=== PATIENT | male | born 1950 | race Caucasian/White ===

== ENCOUNTER 2018-11-03 15:17 | Outpatient (CLI) | payer OTHER ==
--- NOTE | 2018-11-04 11:12 | MRI Report ---
Reason: LEFT SHOULD PAIN NOT IMPROVED WITH PT Procedure Date: 11/03/2018 Accession Number: [id number] / [id number] Procedure: MRI - Shoulder LT W/O CPT Code: FULL RESULT: EXAM: LEFT SHOULDER MRI WITHOUT CONTRAST EXAM DATE: 11/03/2018 05:09 PM. CLINICAL HISTORY: Left shoulder pain without improvement with physical therapy. COMPARISON: None. TECHNIQUE: Multiplanar, multisequence T1-weighted and fluid-sensitive sequences of the shoulder without contrast. Other: None. FINDINGS: Acromioclavicular Region: The acromion is type II. 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 The coracoacromial and coracoclavicular ligaments are intact. No subacromial/subdeltoid bursal fluid. Glenohumeral Region: No subluxation. No effusion or loose bodies. The articular cartilage is unremarkable. The glenohumeral ligaments and joint capsule are unremarkable. Bone Marrow: Small marginal osteophytes at the humeral head and glenoid. No acute fracture or bone lesions. Labrum: The labrum is unremarkable on this nonarthrographic study. Musculature/Rotator Cuff: There is supraspinatus tendinosis. The infraspinatus and teres minor tendons are intact. There is minimal articular surface fraying at the subscapularis tendon. No edema or fatty atrophy. Biceps Tendon: Partial tear of the long head biceps tendon. Other: The subcutaneous tissues are unremarkable. IMPRESSION: 1. Supraspinatus tendinosis. Minimal articular surface fraying at the subscapularis tendon. 2. Partial tear of the long head biceps tendon. 3. 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 [facility] MUSCULOSKELETAL RADIOLOGY SECTION
--- NOTE | 2018-11-04 12:18 | Ultrasound Report ---
Reason: LEFT SHOULD PAIN NOT IMPROVED WITH PT Procedure Date: 11/03/2018 Accession Number: [id number] / [id number] Procedure: US - Ext Limited Non Vascular CPT Code: FULL RESULT: EXAM: LEFT UPPER EXTREMITY ULTRASOUND - LIMITED EXAM DATE: 11/03/2018 04:16 PM. CLINICAL HISTORY: Left shoulder pain not improved with PT. COMPARISON: None. TECHNIQUE: Real-time scanning was performed with static images obtained. FINDINGS: There is chronic disruption of the long head of the biceps tendon with increased echogenicity in the echotexture of the long head portion of the biceps musculature suggestive of some component of fatty atrophy. IMPRESSION: Biceps tear, chronic. [facility]
== END 2018-11-03 15:18 | disposition home or self-care (01) ==
LOC: DI 15:17
PROVIDERS: ATTEND Nurse Practitioner Acute Care
DX: M75.92 Shoulder lesion, unspecified, left shoulder (principal); S46.112A Strain of muscle, fascia and tendon of long head of biceps, left arm, initial encounter; M19.012 Primary osteoarthritis, left shoulder
CPT/HCPCS: 76882

== ENCOUNTER 2019-06-22 08:40 | Outpatient (CLI) | payer OTHER ==
--- NOTE | 2019-06-22 14:12 | Ultrasound Report ---
Reason: OTHER CIRRHOSIS OF LIVER Procedure Date: 06/22/2019 Accession Number: [id number] / [id number] Procedure: US - Abdomen Limited CPT Code: FULL RESULT: EXAM: ABDOMEN ULTRASOUND LIMITED, RUQ EXAM DATE: 06/22/2019 09:28 AM. CLINICAL HISTORY: OTHER CIRRHOSIS OF LIVER. COMPARISON: ABDOMEN LIMITED 07/15/2017 9:57 AM. TECHNIQUE: Real-time scanning was performed with static images obtained. FINDINGS: Liver: Mildly increased echogenicity is noted. The right level of the liver contains a thinly septated cyst measuring 1.3 x 1.1 x 1.1 cm without solid soft tissue component identified. Liver measures at least 15.3 cm. Main portal vein flow: Hepatopetal. Gallbladder: Normal. No stones, wall thickening, or sonographic Galarza's sign. Biliary System: CBD measures 4 mm. No intrahepatic or extrahepatic ductal dilatation. Other: Right kidney is visualized and measures up to 10.2 cm in maximal sagittal dimensions without hydronephrosis or calculi identified. IMPRESSION: Echogenic liver parenchyma without suspicious mass detected. [facility]
== END 2019-06-22 08:41 | disposition home or self-care (01) ==
LOC: DI 08:40
PROVIDERS: ATTEND Nurse Practitioner Acute Care
DX: K74.60 Unspecified cirrhosis of liver (principal)
CPT/HCPCS: 76705

== ENCOUNTER 2020-03-26 09:17 | Outpatient (CLI) | payer OTHER ==
--- NOTE | 2020-03-26 11:14 | Ultrasound Report ---
PROCEDURE: Abdomen Limited INDICATIONS: CIRRHOSIS TECHNIQUE: Real-time focused scanning was performed of the abdomen, with image documentation. COMPARISON: 06/22/2019, 07/15/2017 FINDINGS: The liver demonstrates a heterogeneous, hyperechoic appearance. The liver demonstrates a l obulated contour. There is a septated cyst measuring 1 cm within the right liver superiorly The gallbladder is incompletely distended, which limits its evaluation. No gallstones or significant sludge can be seen. The gallbladder wall is mildly thickened at 4 mm, which is attributed to incomple te distention. There is no specific pericholecystic fluid. The sonographic Galarza's sign is negative. No biliary ductal dilatation is seen. The common bile duct measures 5 mm. The visualized pancreas and right kidney are unremarkable. IMPRESSION: Cirrhotic appearing liver, which is consistent with the given history. No worrisome masses identified on these ultrasound images. If there is strong clinical concern for a liver mass, then please consider a dedicated liver protocol MRI (without and with IV contrast) for further evaluation (assuming that there is no contraindicatio n). Septated 1 cm liver cyst incidentally noted. Reviewed by: Jaime Ruiz MD on 03/26/2020 10:13 AM TOM Approved by: Jaime Ruiz MD on 03/26/2020 10:13 AM TOM Station ID: [id number]
== END 2020-03-26 09:18 | disposition home or self-care (01) ==
LOC: DI 09:17
PROVIDERS: ATTEND Internal Medicine Gastroenterology
DX: K74.69 Other cirrhosis of liver (principal); K76.89 Other specified diseases of liver
CPT/HCPCS: 76705

== ENCOUNTER 2020-06-06 08:00 | Outpatient (CLI) | payer OTHER ==
[2020-06-06 12:56] LABS: BASOPHILS % (AUTO) 0.5 %; EOSINOPHILS # (AUTO) 0.6 10^3/uL (0.0-0.7); EOSINOPHILS % (AUTO) 9.8 %; HGB - HEMOGLOBIN 13.6 g/dL (14.0-18.0); LYMPHOCYTES # (AUTO) 1.5 10^3/uL (1.5-3.5); LYMPHOCYTES % (AUTO) 26.8 %; MEAN CORPUSCULAR HEMOGLOBIN 32.5 pg (27.0-31.0); MEAN CORPUSCULAR HGB CONC 33.5 g/dL (32.0-36.0); MEAN CORPUSCULAR VOLUME 96.9 fL (80.0-94.0); MEAN PLATELET VOLUME 12.5 fL (7.4-11.4); MONOCYTES # (AUTO) 0.5 10^3/uL (0.0-1.0); MONOCYTES % (AUTO) 8.4 %; NEUTROPHILS # (AUTO) 3.1 10^3/uL (1.5-6.6); NEUTROPHILS % (AUTO) 54.3 %; PLT - PLATELET COUNT 148 10^3/uL (130-450); RED BLOOD COUNT 4.19 10^6/uL (4.70-6.10); RED CELL DISTRIBUTION WIDTH 12.5 % (12.0-15.0); WHITE BLOOD COUNT 5.7 x10^3/uL (4.8-10.8)
[2020-06-06 13:12] LABS: ALBUMIN 3.2 g/dL (3.2-5.5); ALBUMIN/GLOBULIN RATIO 0.8 (1.0-2.2); ALKALINE PHOSPHATASE 142 IU/L (42-121); ALT ALANINE AMINOTRANSFERASE 63 IU/L (10-60); AST ASPARTATE AMINOTRANSFERASE 79 IU/L (10-42); BILIRUBIN,TOTAL 0.9 mg/dL (0.2-1.0); BUN - BLOOD UREA NITROGEN 10 mg/dL (6-20); CALCIUM 9.1 mg/dL (8.5-10.3); CARBON DIOXIDE - CO2 26 mmol/L (21-32); CHLORIDE 104 mmol/L (101-111); GLUCOSE 137 mg/dL (70-100); SODIUM 137 mmol/L (135-145); TOTAL PROTEIN 7.2 g/dL (6.7-8.2)
[2020-06-06 13:14] LABS: CRP - C-REACTIVE PROTEIN < 1.0 mg/dL (0-1.0)
== END 2020-06-06 23:59 | disposition home or self-care (01) ==
LOC: LAB.R 08:00
PROVIDERS: ATTEND Internal Medicine Infectious Disease
DX: M86.171 Other acute osteomyelitis, right ankle and foot (principal)
CPT/HCPCS: 80053; 85025; 86140

== ENCOUNTER 2020-07-04 07:00 | Outpatient (CLI) | payer OTHER ==
[2020-07-04 19:09] LABS: BASOPHILS # (AUTO) 0.1 10^3/uL (0.0-0.1); BASOPHILS % (AUTO) 0.8 %; EOSINOPHILS # (AUTO) 0.9 10^3/uL (0.0-0.7); EOSINOPHILS % (AUTO) 14.4 %; HGB - HEMOGLOBIN 13.9 g/dL (14.0-18.0); LYMPHOCYTES # (AUTO) 1.9 10^3/uL (1.5-3.5); LYMPHOCYTES % (AUTO) 29.3 %; MEAN CORPUSCULAR HEMOGLOBIN 32.2 pg (27.0-31.0); MEAN CORPUSCULAR HGB CONC 33.7 g/dL (32.0-36.0); MEAN CORPUSCULAR VOLUME 95.6 fL (80.0-94.0); MEAN PLATELET VOLUME 13.5 fL (7.4-11.4); MONOCYTES # (AUTO) 0.6 10^3/uL (0.0-1.0); MONOCYTES % (AUTO) 9.4 %; NEUTROPHILS % (AUTO) 45.8 %; PLT - PLATELET COUNT 133 10^3/uL (130-450); RED BLOOD COUNT 4.32 10^6/uL (4.70-6.10); RED CELL DISTRIBUTION WIDTH 12.7 % (12.0-15.0); WHITE BLOOD COUNT 6.5 x10^3/uL (4.8-10.8)
[2020-07-04 19:28] LABS: ALBUMIN 3.2 g/dL (3.2-5.5); ALBUMIN/GLOBULIN RATIO 0.8 (1.0-2.2); ALKALINE PHOSPHATASE 160 IU/L (42-121); ALT ALANINE AMINOTRANSFERASE 36 IU/L (10-60); AST ASPARTATE AMINOTRANSFERASE 74 IU/L (10-42); BILIRUBIN,TOTAL 0.7 mg/dL (0.2-1.0); BUN - BLOOD UREA NITROGEN 10 mg/dL (6-20); CARBON DIOXIDE - CO2 24 mmol/L (21-32); CHLORIDE 99 mmol/L (101-111); CREATININE 0.9 mg/dL (0.6-1.2); GLUCOSE 89 mg/dL (70-100); SODIUM 135 mmol/L (135-145); TOTAL PROTEIN 7.2 g/dL (6.7-8.2)
[2020-07-04 19:29] LABS: CRP - C-REACTIVE PROTEIN < 1.0 mg/dL (0-1.0)
== END 2020-07-04 23:59 | disposition home or self-care (01) ==
LOC: LAB.R 07:00
PROVIDERS: ATTEND Internal Medicine Infectious Disease
DX: M86.171 Other acute osteomyelitis, right ankle and foot (principal)
CPT/HCPCS: 80053; 85025; 86140

== ENCOUNTER 2020-11-12 17:55 | Outpatient (CLI) | payer OTHER ==
--- NOTE | 2020-11-12 19:53 | Ultrasound Report ---
PROCEDURE: Abdomen Limited INDICATIONS: CIRRHOSIS TECHNIQUE: Real-time scanning was performed of the abdominal and retroperitoneal organs, with image documentatio n. COMPARISON: 03/26/2020 FINDINGS: Liver: Liver is normal in size with heterogeneous and diffusely echogenic parenchymal echotexture. R edemonstrated in the right hepatic lobe, there is a 1.1 x 1.1 x 1.0 cm septated hepatic cyst. Otherwi se, no suspicious solid hepatic mass lesions. There is mild nodularity of the liver border compatible with history of cirrhosis. Gallbladder: Gallbladder is normal in appearance without gallstones, wall thickening, pericholecystic fluid, or abnormal sonographic Galarza's. Biliary ducts: Intrahepatic bile ducts are non-dilated. Extrahepatic bile duct caliber measures 6 m m. Normal is 6-7 mm or less in diameter, or 10 mm or less post-cholecystectomy. Pancreas: Visualized portions of the pancreas are sonographically normal. Kidneys: Right kidney is normal in size and echotexture. Right kidney measures 9.4 cm long without h ydronephrosis or nephrolithiasis. No solid masses. Miscellaneous: No free abdominal fluid. IMPRESSION: 1. Findings compatible with cirrhotic liver. No suspicious solid mass lesions. Redemonstration of 1.1 cm septated right hepatic lobe cyst. 2. Normal appearance of the gallbladder. If there is strong clinical concern for sonographically occult liver mass, consider further evaluatio n with dedicated liver protocol MRI or CT (without and with intravenous contrast). Reviewed by: Alpesh Londono MD on 11/12/2020 7:51 PM PST Approved by: Alpesh Londono MD on 11/12/2020 7:51 PM PST Station ID: [id number]
== END 2020-11-12 17:56 | disposition home or self-care (01) ==
LOC: DI 17:55
PROVIDERS: ATTEND Internal Medicine Gastroenterology
DX: K74.60 Unspecified cirrhosis of liver (principal); K76.89 Other specified diseases of liver

== ENCOUNTER 2021-08-25 06:46 | Outpatient (CLI) | payer OTHER ==
--- NOTE | 2021-08-25 11:02 | Ultrasound Report ---
PROCEDURE: Abdomen Limited INDICATIONS: CIRRHOSIS OF LIVER TECHNIQUE: Real-time focused scanning was performed of the abdomen, with image documentation. COMPARISON: 11/12/2020 FINDINGS: Cirrhotic liver morphology redemonstrated. Unchanged approximately 1.1 cm septated cyst in the right hepatic lobe. No solid liver mass identified. Remaining visualized right upper quadrant st ructures are within normal limits. IMPRESSION: Cirrhotic liver morphology with no evidence of solid liver mass. Reviewed by: Mike Jimenez MD on 08/25/2021 11:01 AM PST Approved by: Mike Jimenez MD on 08/25/2021 11:01 AM PST Station ID: [id number]
== END 2021-08-25 06:47 | disposition home or self-care (01) ==
LOC: DI 06:46
PROVIDERS: ATTEND Nurse Practitioner Acute Care
DX: K74.60 Unspecified cirrhosis of liver (principal)

== ENCOUNTER 2022-08-07 11:27 | Emergency (ER) | payer OTHER ==
--- NOTE | 2022-08-07 11:35 | ED Physician Documentation ---
History of Present Illness - Stated complaint Stated Complaint: SOA - History obtained from History obtained from: Patient, EMS - Additonal information Additional information: The patient is brought to the emergency department by EMS for chief complaint of shortness of breath. He has a history of COPD and has just felt a little unwell for the last few days and a general sense. The patient uses an albuterol inhaler at home but feels that this has not been helping very much. He denies any fevers or chills. He is not coughing up any phlegm. He states he feels better after receiving a DuoNeb in route. No other complaints at this time. The patient has a history of a heart murmur but denies any other cardiac issues that he knows of. Review of Systems Ten Systems: 10 systems reviewed and negative Constitutional: reports: Reviewed and negative Eyes: reports: Reviewed and negative Ears: reports: Reviewed and negative Nose: reports: Reviewed and negative Throat: reports: Reviewed and negative Cardiac: reports: Reviewed and negative Respiratory: reports: Dyspnea GI: reports: Reviewed and negative : reports: Reviewed and negative Skin: reports: Reviewed and negative Musculoskeletal: reports: Reviewed and negative Neurologic: reports: Reviewed and negative Psychiatric: reports: Reviewed and negative Endocrine: reports: Reviewed and negative Immunocompromised: reports: Reviewed and negative PD PAST MEDICAL HISTORY - Past Medical History Cardiovascular: Hypertension Endocrine/Autoimmune: Type 2 diabetes - Past Surgical History Past Surgical History: Yes Ortho: Knee replacement, Spine surgery HEENT: Cataracts - Present Medications Home Medications: Ambulatory Orders Medication Instructions Recorded Confirmed Atenolol 50 mg PO DAILY 07/31/15 08/07/22 Cetirizine [ZyrTEC] 10 mg ORAL DAILY 07/31/15 08/07/22 Colchicine 0.6 mg PO DAILY 07/31/15 08/07/22 Gabapentin [Neurontin] 600 mg PO BID 07/31/15 08/07/22 Hydroxyzine HCl 10 mg PO BID PRN 07/31/15 08/07/22 Omeprazole [PriLOSEC] 20 mg PO DAILY 07/31/15 08/07/22 Zolpidem Tartrate [Ambien] 10 mg PO DAILY PM 07/31/15 08/07/22 lisinopriL [Lisinopril] 20 mg PO DAILY 07/31/15 08/07/22 metFORMIN [Glucophage] 500 mg PO DAILY 07/31/15 08/07/22 Albuterol Sulfate [Proair 2 puffs IH Q4HR PRN 08/07/22 08/07/22 Digihaler] Amlodipine Besylate [Norvasc] 2.5 mg PO DAILY 08/07/22 08/07/22 Atorvastatin [Lipitor] 10 mg PO DAILY PM 08/07/22 08/07/22 Budesonide/Formoterol Fumarate 2 puffs IH BID 08/07/22 08/07/22 [Symbicort 160-4.5 Mcg Inhaler] Lidocaine Ointment 5% [Xylocaine 1 applic TOP BID PRN 08/07/22 08/07/22 Ointment 5%] predniSONE [Deltasone] 60 mg PO DAILY 5 Days #15 tablet 08/07/22 - Allergies Allergies/Adverse Reactions: Allergies Allergy/AdvReac Type Severity Reaction Status Date / Time morphine Allergy Hives Verified 08/07/22 11:42 shellfish derived Allergy Unknown Verified 08/07/22 11:42 - Social History Does the pt smoke?: No Smoking Status: Never smoker Does the pt drink ETOH?: Yes Does the pt have substance abuse?: No PD ED PE NORMAL - Vitals Vital signs reviewed: Yes - General General: No acute distress, Well developed/nourished, Other (Mildly drowsy, but answers questions appropriately head) - HEENT HEENT: Atraumatic, PERRL, EOMI, Moist mucous membranes - Neck Neck: Supple, no meningeal sign - Cardiac Cardiac: RRR, No murmur, Strong equal pulses - Respiratory Respiratory: No respiratory distress, Clear bilaterally - Abdomen Abdomen: Soft, Non tender, Non distended - Derm Derm: Normal color, Warm and dry, No rash - Extremities Extremities: No deformity, No edema - Neuro Neuro: Alert and oriented X 3, Other (Grossly intact) - Psych Psych: Normal mood, Normal affect Results - Vitals Vitals: Oxygen O2 Source Room air - Labs Labs: Laboratory Tests 08/07/22 08/07/22 08/07/22 11:45 11:45 11:45 WBC 6.6 RBC 3.46 L Hgb 11.5 L Hct 34.4 L MCV 99.4 H MCH 33.2 H MCHC 33.4 RDW 14.7 Plt Count 111 L MPV 11.6 H Neut # (Auto) 4.6 Lymph # (Auto) 0.9 L Stephenson # (Auto) 0.8 Eos # (Auto) 0.3 Baso # (Auto) 0.0 Absolute Nucleated RBC 0.00 Nucleated RBC % 0.0 Sodium 135 Potassium 4.6 Chloride 101 Carbon Dioxide 23 Anion Gap 11.0 BUN 11 Creatinine 1.2 Estimated GFR (MDRD) 60 L Glucose 143 H Calcium 8.7 Total Bilirubin 2.5 H AST 59 H ALT 28 Alkaline Phosphatase 126 H Total Protein 7.1 Albumin 2.9 L Globulin 4.2 Albumin/Globulin Ratio 0.7 L Lipase 29 Nasal Adenovirus (PCR) NOT DETECTED Nasal B. parapertussis DNA (PCR) NOT DETECTED Nasal Coronavir 229E PCR NOT DETECTED Nasal Coronavir HKU1 PCR NOT DETECTED Nasal Coronavir NL63 PCR NOT DETECTED Nasal Coronavir OC43 PCR NOT DETECTED Nasal Enterovir/Rhinovir PCR NOT DETECTED Nasal Influenza B PCR NOT DETECTED Nasal Influenza A PCR NOT DETECTED Nasal Parainfluen 1 PCR NOT DETECTED Nasal Parainfluen 2 PCR NOT DETECTED Nasal Parainfluen 3 PCR NOT DETECTED Nasal Parainfluen 4 PCR NOT DETECTED Nasal RSV (PCR) NOT DETECTED Nasal B.pertussis DNA PCR NOT DETECTED Nasal C.pneumoniae (PCR) NOT DETECTED Yifan Human Metapneumo PCR NOT DETECTED Nasal M.pneumoniae (PCR) NOT DETECTED Nasal SARS-CoV-2 (PCR) NOT DETECTED PD MEDICAL DECISION MAKING - ED course Complexity details: reviewed results, re-evaluated patient, considered differential, d/w patient ED course: The patient's lungs were clear in the emergency department, so no further nebulizer treatments were given initially. The patient was given a dose of steroids here and worked up with labs, respiratory PCR, and chest x-ray. Work- up was unremarkable, and pt was found to be feeling much better on re- evaluation. He was deemed stable for d/c home. We have discussed the usual indications for return. Departure - Departure Disposition: 01 Home, Self Care Clinical Impression: COPD exacerbation, Viral syndrome Condition: Stable Instructions: ED COPD Flare, ED Viral Syndrome Prescriptions: predniSONE [Deltasone] 60 mg PO DAILY 5 Days #15 tablet Comments: Your labs and chest x-ray look good. You most likely have one of the many viruses that are going right around right now and causing such symptoms, and this is caused your COPD to flareup. Your oxygen levels are actually very good and your lungs are quite a bit clearer after the treatment and steroids were given. Your prescriptions have been electronically transmitted to the [facility] in [place], your pharmacy of choice on record. Please follow-up with your primary doctor as needed. Discharge Date/Time: 08/07/22 13:55
[2022-08-07] MEDS ORDERED: DEXAMETHASONE 10 MG/ML VIAL IV STA (11:36)
[2022-08-07 11:51] LABS: BASOPHILS % (AUTO) 0.5 %; EOSINOPHILS # (AUTO) 0.3 10^3/uL (0.0-0.7); EOSINOPHILS % (AUTO) 3.8 %; HCT - HEMATOCRIT 34.4 % (42.0-52.0); HGB - HEMOGLOBIN 11.5 g/dL (14.0-18.0); LYMPHOCYTES # (AUTO) 0.9 10^3/uL (1.5-3.5); LYMPHOCYTES % (AUTO) 13.7 %; MEAN CORPUSCULAR HEMOGLOBIN 33.2 pg (27.0-31.0); MEAN CORPUSCULAR HGB CONC 33.4 g/dL (32.0-36.0); MEAN CORPUSCULAR VOLUME 99.4 fL (80.0-94.0); MEAN PLATELET VOLUME 11.6 fL (7.4-11.4); MONOCYTES # (AUTO) 0.8 10^3/uL (0.0-1.0); NEUTROPHILS # (AUTO) 4.6 10^3/uL (1.5-6.6); NEUTROPHILS % (AUTO) 69.7 %; PLT - PLATELET COUNT 111 10^3/uL (130-450); RED BLOOD COUNT 3.46 10^6/uL (4.70-6.10); RED CELL DISTRIBUTION WIDTH 14.7 % (12.0-15.0); WHITE BLOOD COUNT 6.6 x10^3/uL (4.8-10.8)
[2022-08-07 12:02] LABS: ALBUMIN 2.9 g/dL (3.2-5.5); ALBUMIN/GLOBULIN RATIO 0.7 (1.0-2.2); BILIRUBIN,TOTAL 2.5 mg/dL (0.2-1.0); CALCIUM 8.7 mg/dL (8.5-10.3); CREATININE 1.2 mg/dL (0.6-1.2); POTASSIUM 4.6 mmol/L (3.5-5.0); TOTAL PROTEIN 7.1 g/dL (6.7-8.2)
--- NOTE | 2022-08-07 12:18 | XRAY Report ---
PROCEDURE: Chest 1 View X-Ray INDICATIONS: dyspnea/cough TECHNIQUE: One view of the chest was acquired. COMPARISON: None. FINDINGS: Surgical changes and devices: None. Lungs and pleura: No pleural effusions or pneumothorax. Lungs are clear. Mediastinum: Mediastinal contours appear normal. Heart size is normal. Bones and chest wall: No suspicious bony lesions. Overlying soft tissues appear unremarkable. IMPRESSION: No evidence acute pulmonary process. Reviewed by: Peter Roa MD on 08/07/2022 12:17 PM PST Approved by: Peter Roa MD on 08/07/2022 12:17 PM PST Station ID: [id number]
[2022-08-07 12:59] LABS: B. PARAPERTUSSIS- RESP PCR PAN NOT DETECTED; B. PERTUSSIS- RESP PCR PANEL NOT DETECTED; C. PNEUMONIAE- RESP PCR PANEL NOT DETECTED; CORONAVIRUS 229E-RESP PCR NOT DETECTED; CORONAVIRUS HKU1-RESP PCR NOT DETECTED; CORONAVIRUS NL63-RESP PCR NOT DETECTED; CORONAVIRUS OC43-RESP PCR NOT DETECTED; HUMAN METAPNEUMOVIRUS NOT DETECTED; INFLUENZA A- RESP PCR PANEL NOT DETECTED; INFLUENZA B - RESP PCR PANEL NOT DETECTED; M. PNEUMONIAE- RESP PCR PANEL NOT DETECTED; PARAINFLUENZA VIRUS 1 NOT DETECTED; PARAINFLUENZA VIRUS 2 NOT DETECTED; PARAINFLUENZA VIRUS 3 NOT DETECTED; PARAINFLUENZA VIRUS 4 NOT DETECTED; RHINOVIRUS/ENTEROVIRUS NOT DETECTED; RSV- RESP PCR PANEL NOT DETECTED; SARS-CoV-2 -RESP PCR PANEL NOT DETECTED
[2022-08-07 13:45] VITALS: BP 106/52
== END 2022-08-07 13:55 | disposition home or self-care (01) ==
LOC: EDUNIT# → ED 11:27
DX: J44.1 Chronic obstructive pulmonary disease with (acute) exacerbation (principal); B34.9 Viral infection, unspecified; Z20.822 Contact with and (suspected) exposure to COVID-19
CPT/HCPCS: 36415; 80053; 83690; 85025; 87633; 96374; 99283

== ENCOUNTER → 2022-08-07 | Outpatient (CLI) | payer OTHER | END | disposition critical access hospital (66) | LOC: EMS 11:17 | DX: R06.00 Dyspnea, unspecified (principal) | CPT/HCPCS: A0425; A0427 ==

== ENCOUNTER 2022-10-12 14:31 | Outpatient (CLI) | payer OTHER ==
--- NOTE | 2022-10-12 15:23 | Ultrasound Report ---
PROCEDURE: Abdomen Limited INDICATIONS: CIRRHOSIS TECHNIQUE: Real-time focused scanning was performed of the abdomen, with image documentation. COMPARISON: Ultrasound abdomen 08/25/2021 FINDINGS: Nodular appearance of the liver with coarsened echotexture is consistent with cirrhosis. Liver measur es 11.6 cm in maximum dimension. 1 cm simple cyst in the right hepatic lobe does not appear significa ntly changed. No suspicious hepatic mass. Hepatopetal flow is seen in the main portal vein. Gallbladder wall is thickened, most likely related to chronic liver disease and ascites. No gallstone s. No intrahepatic or extra hepatic biliary duct dilatation is seen. Common bile measures 3 mm in mo meter. The splenic vein appears thickened near the portosplenic confluence without internal color flow, whic h is suspicious for splenic venous thrombosis. The portal vein is patent at the level of the juwan he patis. Visualized portions of the pancreas are normal in echogenicity. Small to moderate volume of ascites throughout the abdomen. IMPRESSION: 1.Suspected splenic venous thrombosis, which is new when compared to the prior ultrasound from 2020. If indicated clinically, further evaluation could be obtained with contrast-enhanced CT of the abdomen (portal venous timing) versus liver protocol MRI or CT. 2.Hepatic cirrhosis. No sonographic signs of hepatocellular carcinoma. 3.Small 2 moderate volume of ascites. Concordant preliminary findings of suspected splenic venous thrombosis conveyed to the ordering provi lv by the material analyst at the conclusion of the exam. Reviewed by: Luciano Aguayo MD on 10/12/2022 3:21 PM PST Approved by: Luciano Aguayo MD on 10/12/2022 3:21 PM PST Station ID: [id number]
== END 2022-10-12 14:32 | disposition home or self-care (01) ==
LOC: DI 14:31
PROVIDERS: ATTEND Internal Medicine Gastroenterology
DX: K74.69 Other cirrhosis of liver (principal); R18.8 Other ascites

== ENCOUNTER 2022-10-22 08:56 | Outpatient (CLI) | payer OTHER ==
[2022-10-22] MEDS ORDERED: GADOBUTROL 15 MMOL/15 ML VIAL ONE (09:07)
[2022-10-22 09:18] LABS: CREATININE 1.7 mg/dL (0.6-1.2)
[2022-10-22] MEDS ORDERED: GADOBUTROL 15 MMOL/15 ML VIAL IVP ONE (11:58)
--- NOTE | 2022-10-22 13:18 | MRI Report ---
PROCEDURE: ABDOMEN W/WO INDICATIONS: Possible splenic vein thrombosis on prior ultrasound. Cirrhosis. CONTRAST: gadavist 10.2ml TECHNIQUE: Coronal ultra fast SE, axial 2D spoiled GE in- and [id number]; axial breath-hold T2 fast SE. Dynam ic axial ultra fast GE during the administration of contrast; post-contrast coronal ultra fast GE or 2D spoiled GE with fat saturation from the hepatic dome to the iliac crests. Optional diffusion weig hted imaging and ADC may be performed. COMPARISON: Abdominal ultrasound 10/12/2022 FINDINGS: Image quality: Adequate. Lung bases: No basal pleural effusions. Liver: Morphologic changes of cirrhosis. No suspicious focal liver lesion identified. Small cyst pres ent in segment 8. Solid organs: spleen is unremarkable in size. Gallbladder is unremarkable. Biliary system is non d ilated. Pancreas is normal in morphology. No adrenal nodules. Both kidneys demonstrate normal size and enhancement, without hydronephrosis. Nodes and vessels: No retroperitoneal or mesenteric adenopathy by size criteria. Aorta and inferior vena cava are normal in size. No definite splenic vein thrombosis identified. Bowel and peritoneum: Unenhanced bowel loops are normal in caliber. Large amount of abdominal free f luid present. IMPRESSION: 1. No definite splenic vein thrombosis identified. 2. Morphologic changes of cirrhosis. No suspicious focal liver lesion identified. 3. Large amount of abdominal free fluid present. Reviewed by: Luciano Moralez MD on 10/22/2022 1:17 PM PST Approved by: Luciano Moralez MD on 10/22/2022 1:17 PM PST Station ID: [id number]
== END 2022-10-22 08:57 | disposition home or self-care (01) ==
LOC: LAB 08:56
PROVIDERS: ATTEND Internal Medicine Gastroenterology
DX: R93.3 Abnormal findings on diagnostic imaging of other parts of digestive tract (principal); K74.60 Unspecified cirrhosis of liver
CPT/HCPCS: 36415; 74183; 82565; A9585

== ENCOUNTER 2022-10-30 17:00 | Emergency (ER) | payer OTHER ==
[2022-10-30 17:35] LABS: BASOPHILS # (AUTO) 0.1 10^3/uL (0.0-0.1); BASOPHILS % (AUTO) 0.4 %; EOSINOPHILS # (AUTO) 0.3 10^3/uL (0.0-0.7); EOSINOPHILS % (AUTO) 2.3 %; HCT - HEMATOCRIT 32.4 % (42.0-52.0); HGB - HEMOGLOBIN 10.8 g/dL (14.0-18.0); LYMPHOCYTES # (AUTO) 1.3 10^3/uL (1.5-3.5); MEAN CORPUSCULAR HEMOGLOBIN 31.8 pg (27.0-31.0); MEAN CORPUSCULAR HGB CONC 33.3 g/dL (32.0-36.0); MEAN CORPUSCULAR VOLUME 95.3 fL (80.0-94.0); MEAN PLATELET VOLUME 10.8 fL (7.4-11.4); MONOCYTES # (AUTO) 1.4 10^3/uL (0.0-1.0); MONOCYTES % (AUTO) 12.6 %; NEUTROPHILS # (AUTO) 8.3 10^3/uL (1.5-6.6); NEUTROPHILS % (AUTO) 73.3 %; PLT - PLATELET COUNT 148 10^3/uL (130-450); RED CELL DISTRIBUTION WIDTH 15.3 % (12.0-15.0); WHITE BLOOD COUNT 11.4 x10^3/uL (4.8-10.8)
[2022-10-30] MEDS ORDERED: FUROSEMIDE 40 MG/4 ML VIAL IVP STA (17:37)
[2022-10-30] MEDS ORDERED: SPIRONOLACTONE 25 MG TABLET PO STA (17:37)
[2022-10-30 17:46] LABS: ALBUMIN 2.1 g/dL (3.2-5.5); ALBUMIN/GLOBULIN RATIO 0.5 (1.0-2.2); BILIRUBIN,TOTAL 4.2 mg/dL (0.2-1.0); CALCIUM 8.8 mg/dL (8.5-10.3); CREATININE 1.6 mg/dL (0.6-1.2); POTASSIUM 4.3 mmol/L (3.5-5.0); TOTAL PROTEIN 6.4 g/dL (6.7-8.2)
--- NOTE | 2022-10-30 18:01 | ED Physician Documentation ---
History of Present Illness - Stated complaint Stated Complaint: MALE - Chief complaint Chief Complaint: General - History obtained from History obtained from: Patient - History of Present Illness Pain level max: 0 Pain level now: 0 - Additonal information Additional information: Patient is a 72-year-old male with a history of alcoholic liver cirrhosis who presents to the emergency department with swelling in the bilateral lower extremities up into the abdomen. He also complains of foreskin and scrotal swelling. He states that been ongoing for several weeks. He states that he was supposed to be on diuretics but does not know which ones and is not taking them. No difficulty breathing. No chest pain. No fevers. No chills. Patient states that he is on "a list of medications" at home but does not know what they are. He is followed by the [facility]. No records are available tonight Review of Systems Constitutional: denies: Fever Nose: denies: Rhinorrhea / runny nose, Congestion Throat: denies: Sore throat Cardiac: denies: Chest pain / pressure, Palpitations Respiratory: denies: Dyspnea, Cough, Wheezing GI: denies: Vomiting, Diarrhea Skin: denies: Rash Musculoskeletal: denies: Neck pain, Back pain Neurologic: denies: Headache PD PAST MEDICAL HISTORY - Past Medical History Cardiovascular: Hypertension Respiratory: COPD Neuro: Tremors Endocrine/Autoimmune: Type 2 diabetes GI: Other : None HEENT: None Psych: None Musculoskeletal: Chronic back pain, Other Derm: None - Past Surgical History Past Surgical History: Yes Ortho: Knee replacement, Spine surgery HEENT: Cataracts - Present Medications Home Medications: Ambulatory Orders Medication Instructions Recorded Confirmed Atenolol 50 mg PO DAILY 07/31/15 08/07/22 Cetirizine [ZyrTEC] 10 mg ORAL DAILY 07/31/15 08/07/22 Colchicine 0.6 mg PO DAILY 07/31/15 08/07/22 Gabapentin [Neurontin] 600 mg PO BID 07/31/15 08/07/22 Hydroxyzine HCl 10 mg PO BID PRN 07/31/15 08/07/22 Omeprazole [PriLOSEC] 20 mg PO DAILY 07/31/15 08/07/22 Zolpidem Tartrate [Ambien] 10 mg PO DAILY PM 07/31/15 08/07/22 lisinopriL [Lisinopril] 20 mg PO DAILY 07/31/15 08/07/22 metFORMIN [Glucophage] 500 mg PO DAILY 07/31/15 08/07/22 Albuterol Sulfate [Proair 2 puffs IH Q4HR PRN 08/07/22 08/07/22 Digihaler] Amlodipine Besylate [Norvasc] 2.5 mg PO DAILY 08/07/22 08/07/22 Atorvastatin [Lipitor] 10 mg PO DAILY PM 08/07/22 08/07/22 Budesonide/Formoterol Fumarate 2 puffs IH BID 08/07/22 08/07/22 [Symbicort 160-4.5 Mcg Inhaler] Lidocaine Ointment 5% [Xylocaine 1 applic TOP BID PRN 08/07/22 08/07/22 Ointment 5%] predniSONE [Deltasone] 60 mg PO DAILY 5 Days #15 tablet 08/07/22 Furosemide [Lasix] 40 mg PO DAILY #28 tablet 10/30/22 Spironolactone [Aldactone] 25 mg PO DAILY #14 tablet 10/30/22 - Allergies Allergies/Adverse Reactions: Allergies Allergy/AdvReac Type Severity Reaction Status Date / Time morphine Allergy Hives Verified 10/30/22 17:10 shellfish derived Allergy Unknown Verified 10/30/22 17:10 - Social History Does the pt smoke?: No Smoking Status: Never smoker Does the pt drink ETOH?: Yes Does the pt have substance abuse?: No - Immunizations Immunizations are current?: Yes PD ED PE NORMAL - Vitals Vital signs reviewed: Yes - General General: Alert and oriented X 3, No acute distress - HEENT HEENT: Moist mucous membranes - Neck Neck: Supple, no meningeal sign - Cardiac Cardiac: RRR - Respiratory Respiratory: No respiratory distress - Abdomen Abdomen: Soft, Non tender, Other (Distended abdomen, soft) - Derm Derm: Warm and dry, No rash - Extremities Extremities: Other (Diffuse 2+ pitting edema from the feet up to the mid abdomen. Scrotal and foreskin swelling present. No erythema. No signs of infection.) - Neuro Neuro: Alert and oriented X 3 Results - Vitals Vitals: Vital Signs - 24 hr 10/30/22 10/30/22 10/30/22 17:06 17:10 19:27 Temperature 37.7 C 37.7 C 36.3 C L Heart Rate 78 78 75 Respiratory 24 24 18 Rate Blood Pressure 110/81 H 110/81 H 135/78 H O2 Saturation 98 98 97 Oxygen O2 Source Room air - Labs Labs: Laboratory Tests 10/30/22 10/30/22 17:29 17:29 WBC 11.4 H RBC 3.40 L Hgb 10.8 L Hct 32.4 L MCV 95.3 H MCH 31.8 H MCHC 33.3 RDW 15.3 H Plt Count 148 MPV 10.8 Neut # (Auto) 8.3 H Lymph # (Auto) 1.3 L [place] # (Auto) 1.4 H Eos # (Auto) 0.3 Baso # (Auto) 0.1 Absolute Nucleated RBC 0.00 Nucleated RBC % 0.0 Sodium 133 L Potassium 4.3 Chloride 96 L Carbon Dioxide 25 Anion Gap 12.0 BUN 16 Creatinine 1.6 H Estimated GFR (MDRD) 43 L Glucose 99 Calcium 8.8 Total Bilirubin 4.2 H AST 51 H ALT 19 Alkaline Phosphatase 134 H Total Protein 6.4 L Albumin 2.1 L Globulin 4.3 H Albumin/Globulin Ratio 0.5 L Lipase 38 PD Medical Decision Making - ED course Complexity details: reviewed results, re-evaluated patient, considered differential, d/w patient Reviewed Lab Results: CBC shows mild anemia, mild leukocytosis. His CMP shows a mild hyponatremia, mildly elevated creatinine and mildly elevated liver function test consistent with his cirrhosis. ED course: Patient with diffuse anasarca secondary to alcoholic liver cirrhosis. Given Lasix and spironolactone here. No indication for emergent paracentesis. No hypoxia. No respiratory distress. No shortness of breath. Will place on diuretics for home and have him follow-up closely with his PCP. Patient is well-appearing, not toxic. Patient counseled regarding signs and symptoms for which I believe and urgent re-evaluation would be necessary. Patient with good understanding of and agreement to plan and is comfortable going home at this time This document was made in part using voice recognition software. While efforts are made to proofread this document, sound alike and grammatical errors may occur. Departure - Departure Disposition: 01 Home, Self Care Clinical Impression: Anasarca Liver cirrhosis Qualifiers: Hepatic cirrhosis type: alcoholic cirrhosis Ascites presence: with ascites Qualified Code(s): K70.31 - Alcoholic cirrhosis of liver with ascites Ascites Qualifiers: Ascites type: due to alcoholic cirrhosis Qualified Code(s): K70.31 - Alcoholic cirrhosis of liver with ascites Condition: Good Instructions: ED Ascites, ED Cirrhosis Liver Follow-Up: KEAGAN NORRIS ARNP [Primary Care Provider] - Tomorrow Prescriptions: Spironolactone [Aldactone] 25 mg PO DAILY #14 tablet Furosemide [Lasix] 40 mg PO DAILY #28 tablet Comments: Your prescriptions were sent to [facility]. Please follow-up with your doctor for further care. Please return if you worsen. As we discussed you have of alcoholic cirrhosis with ascites, which is a buildup of fluid in your abdomen. You also have anasarca. If you are doctor would like to have a paracentesis performed, they can place an order with radiology to schedule this. They will also likely need to adjust the Lasix and spironolactone, but as I do not know your other medications, we will start you with lower doses and your doctor can titrate these up. Elevate your legs never possible. Compression stockings will help as well. Return for chest pain, difficulty breathing or any other new or worrisome symptoms. Discharge Date/Time: 10/30/22 19:35
[2022-10-30 19:27] VITALS: BP 135/78
== END 2022-10-30 19:35 | disposition home or self-care (01) ==
LOC: ED 17:00
DX: R60.1 Generalized edema (principal); K70.31 Alcoholic cirrhosis of liver with ascites; I10 Essential (primary) hypertension; J44.9 Chronic obstructive pulmonary disease, unspecified; E11.9 Type 2 diabetes mellitus without complications; Z79.899 Other long term (current) drug therapy; Z79.84 Long term (current) use of oral hypoglycemic drugs; Z79.51 Long term (current) use of inhaled steroids
CPT/HCPCS: 36415; 80053; 83690; 85025; 96374; 99283; 99284; A9270

== ENCOUNTER 2022-11-03 18:56 | Outpatient (CLI) | payer OTHER | END 2022-11-03 18:57 | disposition critical access hospital (66) | LOC: EMS 18:56 | DX: R41.82 Altered mental status, unspecified (principal); K76.9 Liver disease, unspecified; N28.9 Disorder of kidney and ureter, unspecified; E16.2 Hypoglycemia, unspecified | CPT/HCPCS: A0425; A0427 ==

== ENCOUNTER 2022-11-03 19:08 | Emergency (ER) | payer OTHER ==
--- NOTE | 2022-11-03 19:17 | ED Physician Documentation ---
History of Present Illness - Stated complaint Stated Complaint: AMS - History obtained from History obtained from: EMS - Additonal information Additional information: This is a gentleman with alcoholic cirrhosis who presents by ambulance for altered mental status. He was recently here for anasarca and he was diuresed. Now he has been confused for the last 2 days. History is from the paramedics, patient is unable to provide any history on initial evaluation. Reportedly has been confused for approximately 2 days. PD PAST MEDICAL HISTORY - Past Medical History Cardiovascular: Hypertension Respiratory: COPD Neuro: Tremors Endocrine/Autoimmune: Type 2 diabetes GI: Other : None HEENT: None Psych: None Musculoskeletal: Chronic back pain, Other Derm: None - Past Surgical History Past Surgical History: Yes Ortho: Knee replacement, Spine surgery HEENT: Cataracts - Present Medications Home Medications: Ambulatory Orders Medication Instructions Recorded Confirmed Atenolol 50 mg PO DAILY 07/31/15 11/03/22 Cetirizine [ZyrTEC] 10 mg ORAL DAILY 07/31/15 11/03/22 Colchicine 0.6 mg PO DAILY 07/31/15 11/03/22 Gabapentin [Neurontin] 600 mg PO BID 07/31/15 11/03/22 Hydroxyzine HCl 10 mg PO BID PRN 07/31/15 11/03/22 Omeprazole [PriLOSEC] 20 mg PO DAILY 07/31/15 11/03/22 Zolpidem Tartrate [Ambien] 10 mg PO DAILY PM 07/31/15 11/03/22 lisinopriL [Lisinopril] 20 mg PO DAILY 07/31/15 11/03/22 metFORMIN [Glucophage] 500 mg PO DAILY 07/31/15 11/03/22 Albuterol Sulfate [Proair 2 puffs IH Q4HR PRN 08/07/22 11/03/22 Digihaler] Amlodipine Besylate [Norvasc] 2.5 mg PO DAILY 08/07/22 11/03/22 Atorvastatin [Lipitor] 10 mg PO DAILY PM 08/07/22 11/03/22 Budesonide/Formoterol Fumarate 2 puffs IH BID 08/07/22 11/03/22 [Symbicort 160-4.5 Mcg Inhaler] Lidocaine Ointment 5% [Xylocaine 1 applic TOP BID PRN 08/07/22 11/03/22 Ointment 5%] Furosemide [Lasix] 40 mg PO DAILY #28 tablet 10/30/22 11/03/22 Spironolactone [Aldactone] 25 mg PO DAILY #14 tablet 10/30/22 11/03/22 - Allergies Allergies/Adverse Reactions: Allergies Allergy/AdvReac Type Severity Reaction Status Date / Time morphine Allergy Hives Verified 11/03/22 19:33 shellfish derived Allergy Unknown Verified 11/03/22 19:33 - Social History Does the pt smoke?: No Smoking Status: Never smoker Does the pt drink ETOH?: Yes Does the pt have substance abuse?: No - Immunizations Immunizations are current?: Yes PD ED PE NORMAL - Vitals Vital signs reviewed: Yes - General General: Other (He is tremulous and can state his name, can give no other history. Cannot state that he is in the hospital nor why. Cannot state the date.) - HEENT HEENT: PERRL, Other (Icteric) - Neck Neck: Supple, no meningeal sign, No bony TTP - Cardiac Cardiac: RRR, No murmur - Respiratory Respiratory: No respiratory distress, Clear bilaterally - Abdomen Abdomen: Other (Distended nontender abdomen) - Back Back: No CVA TTP, No spinal TTP - Derm Derm: Normal color, Warm and dry - Neuro Neuro: No motor deficit, No sensory deficit, Other (He has significant asterixis) Eye Opening: Spontaneous Motor: Obeys Commands Verbal: Confused GCS Score: 14 Results - Vitals Vitals: Vital Signs - 24 hr 11/03/22 11/03/22 11/03/22 19:12 19:39 20:22 Temperature 37.2 C Heart Rate 76 75 75 Respiratory 18 18 24 Rate Blood Pressure 113/86 H 138/102 H 148/119 H O2 Saturation 100 100 100 11/03/22 11/03/22 11/03/22 20:38 21:00 21:32 Temperature 36.0 C L 36.5 C Heart Rate 77 78 77 Respiratory 20 25 H 17 Rate Blood Pressure 144/114 H 165/85 H 94/76 O2 Saturation 100 100 100 Oxygen O2 Source Room air - EKG (time done) 2103 Rate: Rate (enter#) (80) Rhythm: NSR [place]: Normal QRS: Low voltage Ischemia: No: ST elevation c/w ischemia, ST depression 1941 Rate: Rate (enter#) (133) Rhythm: Atrial fibrillation Intervals: Prolonged QT QRS: LVH Ischemia: No: ST elevation c/w ischemia, ST depression - Labs Labs: Laboratory Tests 11/03/22 11/03/22 11/03/22 19:18 19:20 19:20 WBC 12.4 H RBC 3.28 L Hgb 10.2 L Hct 30.4 L MCV 92.7 MCH 31.1 H MCHC 33.6 RDW 15.7 H Plt Count 143 MPV 11.4 Neut # (Auto) 9.9 H Lymph # (Auto) 1.4 L [place] # (Auto) 1.1 H Eos # (Auto) 0.0 Baso # (Auto) 0.0 Absolute Nucleated RBC 0.00 Nucleated RBC % 0.0 PT INR Sodium 135 Potassium 5.2 H Chloride 100 L Carbon Dioxide 21 Anion Gap 14.0 H BUN 37 H Creatinine 4.4 H Estimated GFR (MDRD) 13 L Glucose 125 H POC Whole Bld Glucose 110 H Calcium 8.4 L Magnesium 1.7 Total Bilirubin 4.9 H AST 116 H ALT 36 Alkaline Phosphatase 102 Ammonia Total Protein 5.4 L Albumin 1.8 L Globulin 3.6 Albumin/Globulin Ratio 0.5 L Urine Color Urine Clarity Urine pH Ur Specific [place] Urine Protein Urine Glucose (UA) Urine Ketones Urine Occult Blood Urine Nitrite Urine Bilirubin Urine Urobilinogen Ur Leukocyte Esterase Ur Microscopic Review Urine Culture Comments Nasal Adenovirus (PCR) Nasal B. parapertussis DNA (PCR) Nasal Coronavir 229E PCR Nasal Coronavir HKU1 PCR Nasal Coronavir NL63 PCR Nasal Coronavir OC43 PCR Nasal Enterovir/Rhinovir PCR Nasal Influenza B PCR Nasal Influenza A PCR Nasal Parainfluen 1 PCR Nasal Parainfluen 2 PCR Nasal Parainfluen 3 PCR Nasal Parainfluen 4 PCR Nasal RSV (PCR) Nasal B.pertussis DNA PCR Nasal C.pneumoniae (PCR) Yif[place] Human Metapneumo PCR Nasal M.pneumoniae (PCR) Nasal SARS-CoV-2 (PCR) Salicylates < 6.0 Urine Opiates Screen Ur Oxycodone Screen Urine Methadone Screen Ur Propoxyphene Screen Acetaminophen < 10 L Ur Barbiturates Screen Ur Tricyclics Screen Ur Phencyclidine Scrn Ur Amphetamine Screen U Methamphetamines Scrn U Benzodiazepines Scrn Urine Cocaine Screen U Cannabinoids Screen Ethyl Alcohol < 5.0 11/03/22 11/03/22 11/03/22 19:20 19:20 19:39 WBC RBC Hgb Hct MCV MCH MCHC RDW Plt Count MPV Neut # (Auto) Lymph # (Auto) [place] # (Auto) Eos # (Auto) Baso # (Auto) Absolute Nucleated RBC Nucleated RBC % PT 28.3 H INR 2.7 H Sodium Potassium Chloride Carbon Dioxide Anion Gap BUN Creatinine Estimated GFR (MDRD) Glucose POC Whole Bld Glucose Calcium Magnesium Total Bilirubin AST ALT Alkaline Phosphatase Ammonia 87.9 H* Total Protein Albumin Globulin Albumin/Globulin Ratio Urine Color Urine Clarity Urine pH Ur Specific [place] Urine Protein Urine Glucose (UA) Urine Ketones Urine Occult Blood Urine Nitrite Urine Bilirubin Urine Urobilinogen Ur Leukocyte Esterase Ur Microscopic Review Urine Culture Comments Nasal Adenovirus (PCR) NOT DETECTED Nasal B. parapertussis DNA (PCR) NOT DETECTED Nasal Coronavir 229E PCR NOT DETECTED Nasal Coronavir HKU1 PCR NOT DETECTED Nasal Coronavir NL63 PCR NOT DETECTED Nasal Coronavir OC43 PCR NOT DETECTED Nasal Enterovir/Rhinovir PCR NOT DETECTED Nasal Influenza B PCR NOT DETECTED Nasal Influenza A PCR NOT DETECTED Nasal Parainfluen 1 PCR NOT DETECTED Nasal Parainfluen 2 PCR NOT DETECTED Nasal Parainfluen 3 PCR NOT DETECTED Nasal Parainfluen 4 PCR NOT DETECTED Nasal RSV (PCR) NOT DETECTED Nasal B.pertussis DNA PCR NOT DETECTED Nasal C.pneumoniae (PCR) NOT DETECTED [place]if[place] Human Metapneumo PCR NOT DETECTED Nasal M.pneumoniae (PCR) NOT DETECTED Nasal SARS-CoV-2 (PCR) NOT DETECTED Salicylates Urine Opiates Screen Ur Oxycodone Screen Urine Methadone Screen Ur Propoxyphene Screen Acetaminophen Ur Barbiturates Screen Ur Tricyclics Screen Ur Phencyclidine Scrn Ur Amphetamine Screen U Methamphetamines Scrn U Benzodiazepines Scrn Urine Cocaine Screen U Cannabinoids Screen Ethyl Alcohol 11/03/22 11/03/22 19:54 19:54 WBC RBC Hgb Hct MCV MCH MCHC RDW Plt Count MPV Neut # (Auto) Lymph # (Auto) [place] # (Auto) Eos # (Auto) Baso # (Auto) Absolute Nucleated RBC Nucleated RBC % PT INR Sodium Potassium Chloride Carbon Dioxide Anion Gap BUN Creatinine Estimated GFR (MDRD) Glucose POC Whole Bld Glucose Calcium Magnesium Total Bilirubin AST ALT Alkaline Phosphatase Ammonia Total Protein Albumin Globulin Albumin/Globulin Ratio Urine Color YELLOW Urine Clarity CLEAR Urine pH 5.5 Ur Specific [place] 1.020 Urine Protein NEGATIVE Urine Glucose (UA) NEGATIVE Urine Ketones NEGATIVE Urine Occult Blood TRACE-INTA Urine Nitrite NEGATIVE Urine Bilirubin NEGATIVE Urine Urobilinogen 0.2 (NORMAL) Ur Leukocyte Esterase NEGATIVE Ur Microscopic Review NOT INDICATED Urine Culture Comments NOT INDICATED Nasal Adenovirus (PCR) Nasal B. parapertussis DNA (PCR) Nasal Coronavir 229E PCR Nasal Coronavir HKU1 PCR Nasal Coronavir NL63 PCR Nasal Coronavir OC43 PCR Nasal Enterovir/Rhinovir PCR Nasal Influenza B PCR Nasal Influenza A PCR Nasal Parainfluen 1 PCR Nasal Parainfluen 2 PCR Nasal Parainfluen 3 PCR Nasal Parainfluen 4 PCR Nasal RSV (PCR) Nasal B.pertussis DNA PCR Nasal C.pneumoniae (PCR) [place] Human Metapneumo PCR Nasal M.pneumoniae (PCR) Nasal SARS-CoV-2 (PCR) Salicylates Urine Opiates Screen NEGATIVE Ur Oxycodone Screen NEGATIVE Urine Methadone Screen NEGATIVE Ur Propoxyphene Screen NEGATIVE Acetaminophen Ur Barbiturates Screen NEGATIVE Ur Tricyclics Screen NEGATIVE Ur Phencyclidine Scrn NEGATIVE Ur Amphetamine Screen NEGATIVE U Methamphetamines Scrn NEGATIVE U Benzodiazepines Scrn NEGATIVE Urine Cocaine Screen NEGATIVE U Cannabinoids Screen NEGATIVE Ethyl Alcohol PD Medical Decision Making - ED course ED course: 72-year-old gentleman presents with altered mental status in the setting of cirrhosis. He is found to have hepatic encephalopathy with an ammonia of 87.9, but more concerning is it looks like he has gone into hepatorenal syndrome. Today on his CMP his creatinine is 4.4. Just 4 days ago it was 1.6. His INR is 2.7, thankfully his CBC does not show significant pancytopenia. His supportive is at the bedside and would like aggressive measures and transfer at this juncture. MELD score is 37 suggestive of a 52.6% 3-month mortality. Subsequently a right-sided subdural hemorrhage was identified and [facility] was called for transfer. He was accepted there by Dr. Suleman Kwan at 9:52 PM and cobras were completed. He was administered 2000 units of Kcentra For his coagulopathy. - Critical Care Time(min): 50 Time Includes: Direct patient care, Review records, Reassess patient, Document care, Coordinate care, Medical consult, Family consult for tx dec Data interpretation: Labs, Pulse ox Procedures included in critical care time: Peripheral IV Procedures excluded from critical care time: EKG Departure - Departure Disposition: 02 Transfer Acute Care Hosp Clinical Impression: Liver cirrhosis, Hepatic encephalopathy, Hepatorenal syndrome, Subdural hemorrhage Condition: Critical
[2022-11-03 19:25] LABS: BASOPHILS % (AUTO) 0.2 %; EOSINOPHILS % (AUTO) 0.3 %; HCT - HEMATOCRIT 30.4 % (42.0-52.0); HGB - HEMOGLOBIN 10.2 g/dL (14.0-18.0); LYMPHOCYTES # (AUTO) 1.4 10^3/uL (1.5-3.5); LYMPHOCYTES % (AUTO) 11.3 %; MEAN CORPUSCULAR HEMOGLOBIN 31.1 pg (27.0-31.0); MEAN CORPUSCULAR HGB CONC 33.6 g/dL (32.0-36.0); MEAN CORPUSCULAR VOLUME 92.7 fL (80.0-94.0); MEAN PLATELET VOLUME 11.4 fL (7.4-11.4); MONOCYTES # (AUTO) 1.1 10^3/uL (0.0-1.0); MONOCYTES % (AUTO) 8.5 %; NEUTROPHILS # (AUTO) 9.9 10^3/uL (1.5-6.6); NEUTROPHILS % (AUTO) 79.2 %; PLT - PLATELET COUNT 143 10^3/uL (130-450); RED BLOOD COUNT 3.28 10^6/uL (4.70-6.10); RED CELL DISTRIBUTION WIDTH 15.7 % (12.0-15.0); WHITE BLOOD COUNT 12.4 x10^3/uL (4.8-10.8)
[2022-11-03 19:33] LABS: INR 2.7 (0.8-1.2); PT - PROTHROMBIN TIME 28.3 secs (9.9-12.6)
[2022-11-03] MEDS ORDERED: LACTULOSE 10 GM /15 ML UDC PO STA (19:42)
[2022-11-03 19:58] LABS: ACETAMINOPHEN < 10 ug/mL (10-30); ALBUMIN 1.8 g/dL (3.2-5.5); ALBUMIN/GLOBULIN RATIO 0.5 (1.0-2.2); ALKALINE PHOSPHATASE 102 IU/L (42-121); ALT ALANINE AMINOTRANSFERASE 36 IU/L (10-60); AST ASPARTATE AMINOTRANSFERASE 116 IU/L (10-42); BILIRUBIN,TOTAL 4.9 mg/dL (0.2-1.0); BUN - BLOOD UREA NITROGEN 37 mg/dL (6-20); CALCIUM 8.4 mg/dL (8.5-10.3); CARBON DIOXIDE - CO2 21 mmol/L (21-32); CHLORIDE 100 mmol/L (101-111); CREATININE 4.4 mg/dL (0.6-1.2); ETOH - ETHANOL < 5.0 mg/dL; GFR - MDRD 13 (>89); GLUCOSE 125 mg/dL (70-100); MAGNESIUM 1.7 mg/dL (1.7-2.8); POTASSIUM 5.2 mmol/L (3.5-5.0); SALICYLATE < 6.0 mg/dL; SODIUM 135 mmol/L (135-145); TOTAL PROTEIN 5.4 g/dL (6.7-8.2)
[2022-11-03] MEDS ORDERED: LORazepam 2 MG/ML VIAL IVP STA ×2 (19:58→22:01)
[2022-11-03 20:04] LABS: MUDS CUTOFF CONCENTRATIONS CUTOFF CONC BELOW:
[2022-11-03 20:06] LABS: BILIRUBIN,URINE NEGATIVE (NEGATIVE); GLUCOSE, URINE (UA) NEGATIVE (NEGATIVE); KETONES,URINE (UA) NEGATIVE (NEGATIVE); LEUKOCYTE ESTERASE, URINE NEGATIVE (NEGATIVE); NITRITE,URINE NEGATIVE (NEGATIVE); OCCULT BLOOD,URINE TRACE-INTA (NEGATIVE); PH,URINE 5.5 PH (5.0-7.5); PROTEIN,URINE NEGATIVE (NEGATIVE); UROBILINOGEN,URINE 0.2 (NORMAL) E.U./dL (NORMAL)
[2022-11-03 20:19] LABS: AMPHETAMINE SCREEN,URINE NEGATIVE (NEGATIVE); BARBITURATE SCREEN,UR NEGATIVE (NEGATIVE); BENZODIAZEPINES SCREEN, URINE NEGATIVE (NEGATIVE); COCAINE SCREEN URINE NEGATIVE (NEGATIVE); METHADONE SCREEN, URINE NEGATIVE (NEGATIVE); METHAMPHETAMINES SCREEN, URINE NEGATIVE (NEGATIVE); OPIATE SCREEN, URINE NEGATIVE (NEGATIVE); OXYCODONE SCREEN, URINE NEGATIVE (NEGATIVE); PROPOXYPHENE SCREEN, URINE NEGATIVE (NEGATIVE); THC CANNABINOID SCREEN, URINE NEGATIVE (NEGATIVE); TRICYCLIC ANTIDEPRESSANT,URINE NEGATIVE (NEGATIVE)
[2022-11-03 20:20] LABS: CLARITY,URINE CLEAR (CLEAR)
[2022-11-03 20:42] LABS: B. PARAPERTUSSIS- RESP PCR PAN NOT DETECTED; B. PERTUSSIS- RESP PCR PANEL NOT DETECTED; C. PNEUMONIAE- RESP PCR PANEL NOT DETECTED; CORONAVIRUS 229E-RESP PCR NOT DETECTED; CORONAVIRUS HKU1-RESP PCR NOT DETECTED; CORONAVIRUS NL63-RESP PCR NOT DETECTED; CORONAVIRUS OC43-RESP PCR NOT DETECTED; HUMAN METAPNEUMOVIRUS NOT DETECTED; INFLUENZA A- RESP PCR PANEL NOT DETECTED; INFLUENZA B - RESP PCR PANEL NOT DETECTED; M. PNEUMONIAE- RESP PCR PANEL NOT DETECTED; PARAINFLUENZA VIRUS 1 NOT DETECTED; PARAINFLUENZA VIRUS 2 NOT DETECTED; PARAINFLUENZA VIRUS 3 NOT DETECTED; PARAINFLUENZA VIRUS 4 NOT DETECTED; RHINOVIRUS/ENTEROVIRUS NOT DETECTED; RSV- RESP PCR PANEL NOT DETECTED; SARS-CoV-2 -RESP PCR PANEL NOT DETECTED
[2022-11-03] MEDS ORDERED: PROTHROMBIN COMPLEX CONC 500 UNIT VIAL IVP STA (21:39)
[2022-11-03 22:12] VITALS: BP 91/44
[2022-11-03] MEDS ORDERED: DEXTROSE 10% 250 ML IV ONE (22:19)
[2022-11-03] MEDS ORDERED: DEXTROSE 10% 1,000 ML IV STA (22:22)
[2022-11-03] MEDS ORDERED: DEXTROSE 10% 250 ML IV STA (22:24)
[2022-11-03] MEDS ORDERED: ALBUMIN 25% 12.5 GM/50 ML VIAL IV STA (22:34)
== END 2022-11-03 22:44 | disposition short-term general hospital (02) ==
LOC: EDUNIT# → ED 19:08
DX: K76.82 Hepatic encephalopathy (principal); K70.30 Alcoholic cirrhosis of liver without ascites; I62.00 Nontraumatic subdural hemorrhage, unspecified; K76.7 Hepatorenal syndrome; Z20.822 Contact with and (suspected) exposure to COVID-19
CPT/HCPCS: 36415; 70450; 80053; 80306; 80307; 80320; 80329; 81003; 82140; 83735; 85025; 85610; 87633; 93005; 96374; 96375; 96376; 99285; 99291; A9270; J2060; J3490; J7168; 81001; 87086